=== PATIENT | female | born 2000 | race Caucasian/White ===

== ENCOUNTER 2022-07-19 03:21 | Emergency (ER) | payer MEDICAID ==
[~2022-07-19] VITALS: Ht 172.7 cm; Wt 67.0 kg
[2022-07-19 03:38] VITALS: BP 110/57
== END 2022-07-19 06:02 | disposition left against medical advice (07) ==
LOC: ER 03:21
DX: Z53.21 Procedure and treatment not carried out due to patient leaving prior to being seen by health care provider (principal)

== ENCOUNTER 2023-04-23 14:14 | Emergency (ER) | payer MEDICAID ==
[~2023-04-23] VITALS: Ht 154.9 cm; Wt 138.0 kg
[2023-04-23 14:33] VITALS: O2SAT 100
[2023-04-23 15:05] LABS: HEMATOCRIT. 41.3 % (36.0-48.0); HEMOGLOBIN. 13.9 g/dL (12.0-16.0); MEAN CORPUSCULAR HEMOGLOBIN 27.6 pg (28.0-32.0); MEAN CORPUSCULAR VOLUME 82.1 fL (81.0-99.0); MEAN PLATELET VOLUME 9.9 fl (7.4-10.4); PLATELET 201 x1000/uL (130-400); RED BLOOD CELL COUNT 5.03 mill/uL (4.2-5.4); RED CELL DISTRIBUTION WIDTH 14.7 % (11.6-14.6)
[2023-04-23 15:06] LABS: CHLORIDE 103 mEq/L (98-107)
[2023-04-23 15:25] LABS: CLARITY URINE CLEAR (CLEAR); COLOR URINE YELLOW (YELLOW); KETONES URINE 1+ (NEGATIVE); LEUKOCYTE ESTERASE URINE NEGATIVE (NEGATIVE); NITRITE URINE NEGATIVE (NEGATIVE); OCCULT BLOOD URINE 2+ (NEGATIVE); PH URINE 5.5 (4.5-8.0); PROTEIN URINE 1+ (NEGATIVE); SPECIFIC GRAVITY URINE 1.025 (1.005-1.030); UROBILINOGEN URINE 0.2 E.U./dL (0.2-1.0)
[2023-04-23] MEDS ORDERED: SODIUM CHLORIDE 0.9% 1,000 ML IV ONE (16:30)
[2023-04-23] MEDS ORDERED: ONDANSETRON HCL 4MG/2ML INJ IV ONE (16:30)
[2023-04-23] MEDS ORDERED: KETOROLAC 15MG/ML VIAL IV ONE (16:30)
[2023-04-23] MEDS ORDERED: ONDA4TAB50 MT (17:51)
[2023-04-23] MEDS ORDERED: NAPR220C61 MT (17:51)
[2023-04-23] MEDS ORDERED: AMOX1TAB16 MT (17:51)
[2023-04-23] MEDS ORDERED: AMOXICILLIN/POTASSIUM CLAVULANATE 875/125MG TAB PO ONE (18:00)
[2023-04-23 18:37] LABS: PLATELET ESTIMATE NORMAL
[2023-04-23 18:47] VITALS: BP 126/87; PULSE 94; RESP 20; TEMP 98.2
== END 2023-04-23 18:49 | disposition home or self-care (01) ==
LOC: ER 14:14
DX: K52.9 Noninfective gastroenteritis and colitis, unspecified (principal); Z00.00 Encounter for general adult medical examination without abnormal findings; Z90.49 Acquired absence of other specified parts of digestive tract; R50.9 Fever, unspecified; M79.10 Myalgia, unspecified site
CPT/HCPCS: 99285; 74176; 96374; 96375; 80053; 81003; 81025; 85025; 36415; 93005; J1885; J2405; J7030

== ENCOUNTER 2025-02-09 10:26 | Emergency (ER) | payer MEDICAID, OTHER ==
[~2025-02-09] VITALS: Ht 165.1 cm; Wt 58.0 kg
[~2025-02-09 10:26] MED LIST: AMOX1TAB16 MT; NAPR220C61 MT; ONDA4TAB50 MT
[2025-02-09 10:35] VITALS: O2SAT 100
[2025-02-09 10:55] VITALS: BP 116/64; PULSE 91; RESP 14; TEMP 36.6; O2SAT 98
[2025-02-09 11:29] LABS: BASOPHILS % 0.4 % (0.0-2.0); EOSINOPHILS % 0.6 % (0.0-5.0); HEMATOCRIT. 39.5 % (36.0-48.0); LYMPHOCYTES % 24.5 % (20.0-50.0); MEAN CORPUSCULAR HEMOGLOBIN 27.4 pg (28.0-32.0); MEAN CORPUSCULAR HGB CONC 32.8 g/dL (31.0-37.0); MEAN CORPUSCULAR VOLUME 83.6 fL (81.0-99.0); MEAN PLATELET VOLUME 10.5 fl (7.4-10.4); MONOCYTES % 7.3 % (2.0-8.0); NEUTROPHILS % 67.2 % (40.0-76.0); PLATELET 224 x1000/uL (130-400); RED BLOOD CELL COUNT 4.73 mill/uL (4.2-5.4); RED CELL DISTRIBUTION WIDTH 14.3 % (11.6-14.6); WHITE BLOOD COUNT 7.8 x1000/uL (4.5-11.0)
[2025-02-09 11:41] LABS: CHLORIDE 103 mEq/L (98-107); POTASSIUM 3.8 mEq/L (3.5-5.1); SODIUM 137 mEq/L (136-145)
[2025-02-09 11:42] LABS: CALCIUM 9.1 mg/dL (8.7-10.4); CARBON DIOXIDE 27 mEq/L (21-32)
[2025-02-09 11:47] LABS: CREATININE 0.7 mg/dL (0.6-1.0); GLUCOSE 109 mg/dL (70-105); UREA NITROGEN BLOOD 10 mg/dL (9-23)
[2025-02-09 12:08] LABS: B-HCG QUANTITATIVE 51717 mIU/mL (<6)
[2025-02-09 12:53] LABS: CLARITY URINE CLEAR (CLEAR); COLOR URINE YELLOW (YELLOW); GLUCOSE URINE NEGATIVE (NEGATIVE); KETONES URINE TRACE (NEGATIVE); LEUKOCYTE ESTERASE URINE NEGATIVE (NEGATIVE); NITRITE URINE NEGATIVE (NEGATIVE); OCCULT BLOOD URINE NEGATIVE (NEGATIVE); PROTEIN URINE TRACE (NEGATIVE); SPECIFIC GRAVITY URINE 1.031 (1.005-1.030)
[2025-02-09 13:15] LABS: MUCUS URINE 1+ /lpf (< = 2+)
[2025-02-09 13:16] LABS: BACTERIA URINE 1+; SQUAMOUS EPITHELIAL CELL URINE 2+ /lpf (RARE/1+)
[2025-02-09 13:17] LABS: RBC URINE 0-2 /hpf (0-2); WBC URINE 0-2 /hpf (0-2)
[2025-02-09 14:08] LABS: ALANINE AMINOTRANSFERASE 32 IU/L (10-49); ASPARTATE AMINOTRANSFERASE 18 IU/L (<34); BILIRUBIN DIRECT 0.1 mg/dL (<=3.0); BILIRUBIN TOTAL 0.5 mg/dL (0.1-1.0)
[2025-02-09 14:09] LABS: PROTEIN TOTAL 6.9 g/dL (6.0-8.3)
== END 2025-02-09 14:25 | disposition home or self-care (01) ==
LOC: ER 10:26
DX: O20.8 Other hemorrhage in early pregnancy (principal); O26.891 Other specified pregnancy related conditions, first trimester; R10.2 Pelvic and perineal pain; R10.31 Right lower quadrant pain; Z3A.01 Less than 8 weeks gestation of pregnancy; Z90.49 Acquired absence of other specified parts of digestive tract
CPT/HCPCS: 36415; 76801; 80048; 80076; 81003; 84702; 85025; 86850; 86900; 87210; 99284